=== PATIENT | female | born 1955 | race Caucasian/White ===

== ENCOUNTER 2017-12-20 00:19 | Emergency (ER) | payer OTHER ==
[~2017-12-20] VITALS: Ht 162.6 cm; Wt 59.0 kg
[2017-12-20 00:35] VITALS: BP 116/74
[2017-12-20 00:51] LABS: Basophils # (auto) 0.1 uL; Basophils % (auto) 0.8 % (0.0-2.0); Eosinophils # (auto) 0.2 uL; Eosinophils % (auto) 3.4 % (0.0-7.0); Hematocrit 39.2 % (36.0-46.0); Hemoglobin 13.3 g/dL (12.2-16.2); Lymphocytes # (auto) 2.8 uL; Lymphocytes % (auto) 38.4 % (10.0-50.0); Mean Corpuscular Hemoglobin 31.5 pg (28.0-32.0); Mean Corpuscular Hgb Conc. 33.9 g/dL (32.0-36.0); Monocytes # (auto) 0.7 uL; Monocytes % (auto) 9.1 % (0.0-12.0); Neutrophils # (auto) 3.5 uL; Neutrophils % (auto) 48.3 % (37.0-80.0); Nucleated Red Blood Cells % 0.1 %; Platelet Count (auto) 315 10^3/uL (140-450); Red Blood Cells 4.22 10^6/uL (4.0-5.20); Red Cell Distribution Width 13.5 % (11.8-14.3); White Blood Cell 7.2 10^3/uL (4.4-10.8)
[2017-12-20 01:04] LABS: INR 1.05 (0.9-1.15); Partial Thromboplastin Time 23.6 sec (23.78-33.04); Prothrombin Time 11.2 sec (9.27-12.13)
[2017-12-20 01:08] LABS: Albumin 3.5 g/dL (3.4-5.0); Anion Gap 8 (5-15); Calcium 8.6 mg/dL (8.5-10.1); Carbon Dioxide 22 mmol/L (21-32); Chloride 109 mmol/L (98-107); Sodium 139 mmol/L (136-145)
[2017-12-20 01:10] LABS: Aspartate Aminotransferase 32 U/L (15-37); Blood Alcohol < 3.0 mg/dL (0-5); Blood Urea Nitrogen 12 mg/dL (7-18); GFR African American 80 mL/min; GFR Non-African American 66 mL/min; Glucose 153 mg/dL (74-106)
[2017-12-20 01:13] LABS: Acetaminophen < 2.0 ug/mL (10-30); Salicylate 1.8 mg/dL (2.8-20.0)
[2017-12-20 01:24] LABS: Alanine Aminotransferase 43 U/L (13-56); Alkaline Phosphatase 69 U/L (45-117); Bilirubin, Total 0.6 mg/dL (0.2-1.0); Total Protein 6.5 g/dL (6.4-8.2)
== END 2017-12-20 01:05 | disposition left against medical advice (07) ==
LOC: ER 00:21
DX: N93.9 Abnormal uterine and vaginal bleeding, unspecified (principal); Z53.21 Procedure and treatment not carried out due to patient leaving prior to being seen by health care provider
CPT/HCPCS: 36415; 80053; 80320; 80329; 85025; 85610; 85730; 86850; 86900; 86901